=== PATIENT | male | born 1970 | race Caucasian/White ===

== ENCOUNTER 2021-08-02 17:05 | Inpatient (IN) | payer OTHER ==
[~2021-08-02] VITALS: Ht 162.6 cm; Wt 65.0 kg
[2021-08-02 18:43] LABS: BASOPHILS % (AUTO) 0.8 % (0.0-2.0); EOSINOPHILS % (AUTO) 2.2 % (1.0-6.0); HEMATOCRIT 40.4 % (41-53); HEMOGLOBIN 13.2 g/dL (13.5-17.5); LYMPHOCYTES # (AUTO) 1.2 K/uL (1.0-4.8); LYMPHOCYTES % (AUTO) 21.4 % (22.0-44.0); MEAN CORPUSCULAR HEMOGLOBIN 31.4 pg (26.0-34.0); MEAN CORPUSCULAR HGB CONC 32.6 G/dL (31.0-37.0); MEAN CORPUSCULAR VOLUME 96 fL (80-100); MONOCYTES # (AUTO) 0.8 K/uL (0.1-1.0); MONOCYTES % (AUTO) 14.9 % (2.0-9.0); NEUTROPHILS # (AUTO) 3.3 K/uL (1.8-7.7); NEUTROPHILS % (AUTO) 60.7 % (40.0-70.0); PLATELET COUNT (AUTO) 302 K/uL (150-450); RED BLOOD CELL COUNT(AUTO) 4.19 MIL/uL (4.50-5.90); RED CELL DISTRIBUTION WIDTH 14.5 % (11.5-14.5)
[2021-08-02] MEDS ORDERED: TRAZ-184 PO (18:43)
[2021-08-02] MEDS ORDERED: QUET100T PO (18:43)
[2021-08-02] MEDS ORDERED: CITA-144 PO (18:43)
[2021-08-02] MEDS ORDERED: TraZODone HCL 50 MG TABLET PO ONE (18:45)
[2021-08-02 18:49] LABS: ANION GAP 5 mmol/L (8-16); CALCIUM, TOTAL 8.6 mg/dL (8.8-10.5); CARBON DIOXIDE 29 mmol/L (22-29); CHLORIDE 106 mmol/L (98-107); CREATININE 0.85 mg/dL (0.60-1.30); GLOMERULAR FILTR. RATE CALC > 60 mL/min (>60); GLUCOSE,RANDOM 91 mg/dL (70-110); POTASSIUM 4.4 mmol/L (3.5-5.1); SODIUM SERUM 140 mmol/L (136-145); UREA NITROGEN, BLOOD 10 mg/dL (7-18)
[2021-08-02 18:55] LABS: ALANINE AMINOTRANSFERASE 45 U/L (12-78); ALBUMIN 3.2 g/dL (3.4-5.0); ALKALINE PHOSPHATASE 111 U/L (46-116); ASPARTATE AMINOTRANSFERASE 28 U/L (15-37); BILIRUBIN,TOTAL 0.1 mg/dL (0.1-1.0); TOTAL PROTEIN, SERUM 7.2 g/dL (6.4-8.2)
[2021-08-02] MEDS ORDERED: 0.9% SODIUM CHLORIDE 10 ML SYRINGE IVP PRN (19:15)
[2021-08-02] MEDS ORDERED: ONDANSETRON HCL 4 MG/2 ML VIAL IVP PRN ×2 (19:15→20:00)
[2021-08-02] MEDS ORDERED: ACETAMINOPHEN 325 MG TABLET PO PRN ×2 (19:15→20:00)
[2021-08-02] MEDS ORDERED: QUEtiapine FUMARATE 100 MG TABLET PO ONE (19:30)
[2021-08-02] MEDS ORDERED: MELATONIN 3 MG TABLET PO PRN (20:00)
[2021-08-02 20:17] LABS: COVID AG,FIA SOURCE NASOPHARYNGEAL
[2021-08-02 21:00] VITALS: BP 120/72
[2021-08-02] MEDS: HEPARIN SODIUM,PORCINE 5,000 UNITS/ML VIAL SQ SCH (23:31)
[2021-08-03] MEDS ORDERED: INFLUENZA VIRUS VACCINE QVS 2021-22 (6MO+)/PF 60 MCG/0.5 ML SYRINGE IM. ONE (03:45)
[2021-08-03 04:30] VITALS: BP 102/63
[2021-08-03 05:00] LABS: AMPHET/METH SCREEN,URINE NEGATIVE (NEGATIVE); BARBITURATE SCREEN, URINE NEGATIVE (NEGATIVE); BENZODIAZEPINES SCREEN,URINE NEGATIVE (NEGATIVE); CANNABINOID SCREEN,URINE NEGATIVE (NEGATIVE); COCAINE SCREEN,URINE NEGATIVE (NEGATIVE); METHADONE SCREEN, URINE NEGATIVE (NEGATIVE); OPIATE SCREEN,URINE NEGATIVE (NEGATIVE); PHENCYCLIDINE SCREEN,URINE NEGATIVE (NEGATIVE)
[2021-08-03 08:06] VITALS: BP 102/61
[2021-08-03] MEDS ORDERED: QUEtiapine FUMARATE 25 MG TABLET PO PRN (11:45)
[2021-08-03] MEDS: FLUoxetine HCL 20 MG CAPSULE PO SCH (12:47)
[2021-08-03] MEDS: OLANZapine 5 MG TABLET PO SCH ×2 (12:47→20:18)
[2021-08-03] MEDS: HEPARIN SODIUM,PORCINE 5,000 UNITS/ML VIAL SQ SCH ×3 (12:48→23:42)
[2021-08-03 15:59] VITALS: BP 93/57
[2021-08-03 19:56] VITALS: BP 102/60
[2021-08-03] MEDS: TraZODone HCL 100 MG TABLET PO SCH (20:18)
[2021-08-04 05:07] VITALS: BP 95/56
[2021-08-04 07:32] VITALS: BP 100/59
[2021-08-04] MEDS: FLUoxetine HCL 20 MG CAPSULE PO SCH (08:08)
[2021-08-04] MEDS: OLANZapine 5 MG TABLET PO SCH ×2 (08:08→20:25)
[2021-08-04] MEDS: HEPARIN SODIUM,PORCINE 5,000 UNITS/ML VIAL SQ SCH ×3 (08:09→23:45)
[2021-08-04 15:17] VITALS: BP 91/51
[2021-08-04 19:45] VITALS: BP 98/69
[2021-08-04] MEDS: TraZODone HCL 100 MG TABLET PO SCH (20:25)
[2021-08-05 04:55] VITALS: BP 102/64
[2021-08-05 07:42] VITALS: BP 105/68
[2021-08-05] MEDS: OLANZapine 5 MG TABLET PO SCH ×2 (09:11→20:04)
[2021-08-05] MEDS: FLUoxetine HCL 10 MG CAPSULE PO SCH ×2 (09:11→20:04)
[2021-08-05] MEDS: HEPARIN SODIUM,PORCINE 5,000 UNITS/ML VIAL SQ SCH ×3 (09:11→23:00)
[2021-08-05 16:05] VITALS: BP 91/60
[2021-08-05] MEDS: TraZODone HCL 100 MG TABLET PO SCH (20:04)
[2021-08-05 20:11] VITALS: BP 120/70
[2021-08-06 04:05] VITALS: BP 93/56
[2021-08-06 07:23] VITALS: BP 102/63
[2021-08-06] MEDS: HEPARIN SODIUM,PORCINE 5,000 UNITS/ML VIAL SQ SCH ×3 (08:34→23:24)
[2021-08-06] MEDS: FLUoxetine HCL 10 MG CAPSULE PO SCH ×2 (08:34→20:56)
[2021-08-06] MEDS: OLANZapine 5 MG TABLET PO SCH ×2 (08:34→20:56)
[2021-08-06 19:35] VITALS: BP 91/60
[2021-08-06] MEDS: TraZODone HCL 100 MG TABLET PO SCH (20:56)
[2021-08-07 03:40] VITALS: BP 104/67
[2021-08-07 08:05] VITALS: BP 104/58
[2021-08-07] MEDS: HEPARIN SODIUM,PORCINE 5,000 UNITS/ML VIAL SQ SCH ×2 (08:41→15:25)
[2021-08-07] MEDS: OLANZapine 5 MG TABLET PO SCH (08:41)
[2021-08-07] MEDS: FLUoxetine HCL 10 MG CAPSULE PO SCH (08:41)
[2021-08-07] MEDS ORDERED: FLUO10CA24 PO (17:59)
[2021-08-07] MEDS ORDERED: OLAN5TAB52 PO (18:00)
[2021-08-07] MEDS ORDERED: TRAZ-257 PO (18:00)
== END 2021-08-07 18:35 | DRG 885 ==
LOC: EMS 17:10 → 6S 19:56
PROVIDERS: ADMIT Internal Medicine; ATTEND Internal Medicine
DX: F25.9 Schizoaffective disorder, unspecified (principal); R45.851 Suicidal ideations; Z20.822 Contact with and (suspected) exposure to COVID-19; Z91.51 Personal history of suicidal behavior
CPT/HCPCS: 80053; 85025; 99285; G0480; J1644